=== PATIENT | female | born 1985 | race Hispanic/Latino ===

== ENCOUNTER 2025-04-01 11:15 | Emergency (ER) | payer SELFPAY ==
[2025-04-01] MEDS ORDERED: Cyclobenzaprine 10 MG TAB ONE (13:05)
[2025-04-01] MEDS ORDERED: cloNIDine 0.1 MG TAB ONE (13:05)
[2025-04-01] MEDS ORDERED: Ketorolac Tromethamine 30 MG (1 mL) VIAL ONE (13:05)
== END 2025-04-01 14:10 | disposition home or self-care (01) ==
LOC: CSHERS 11:15
DX: M62.830 Muscle spasm of back (principal)
CPT/HCPCS: 72100; 96372; 99283; J1885